=== PATIENT | female | born 1995 | race Caucasian/White ===

== ENCOUNTER 2018-03-08 09:50 | Emergency (ER) | payer SELFPAY ==
--- NOTE | 2018-03-08 11:35 | EDM.PDOC ---
ED HPI GENERAL MEDICAL PROBLEM - General Chief Complaint: Skin Complaint Stated Complaint: LEFT BREAST Time Seen by Provider: 03/08/18 10:32 Source of Information: Reports: Patient, Family History Limitations: Reports: No Limitations - History of Present Illness INITIAL COMMENTS - FREE TEXT/NARRATIVE: 22 y.o.w.f -smoker-out of state ([place]) gave to a boy 3 moth ago and had a miscarriage 1 month ago when she noticed swelling of her breast. US of her breast showed an abscess, which was drained and the pt was given Doxycycline. [place] in [place] for a job in the area, when the pt noticed a gain swelling and kumar coming from her breast. Pt denied physical trauma. BP 116/76 RR 18 Pulse ox 98% on RA Pulse 82 bpm Temp 36.8 Onset Date: 02/05/18 Onset Time: 07:00 Duration: Getting Worse Location: Reports: Chest (left breast) Quality: Reports: Ache, Dull, Pressure Severity: Mild Improves with: Reports: Rest Worsens with: Reports: Movement Context: Reports: Other Associated Symptoms: Reports: No Other Symptoms left breast Pain Score (Numeric/FACES): 6 - Related Data Allergies Allergy/AdvReac Type Severity Reaction Status Date / Time No Known Allergies Allergy Verified 03/08/18 10:31 Home Meds: Home Meds . [Unable to Verify Home Med List] 03/08/18 [History] Review of Systems - Review of Systems Review Of Systems: See Below Constitutional: Reports: No Symptoms Eyes: Reports: No Symptoms Ears: Reports: No Symptoms Nose: Reports: No Symptoms Mouth/Throat: Reports: No Symptoms Respiratory: Reports: No Symptoms Cardiovascular: Reports: No Symptoms GI/Abdominal: Reports: No Symptoms Genitourinary: Reports: No Symptoms Musculoskeletal: Reports: No Symptoms Skin: Reports: Other (swelling of left breast) Neurological: Reports: No Symptoms Psychiatric: Reports: No Symptoms ED EXAM, GENERAL - Physical Exam Exam: See Below Exam Limited By: No Limitations General Appearance: Alert, WD/WN, Mild Distress Eye Exam: Bilateral Eye: Normal Inspection Ears: Normal External Exam Ear Exam: Bilateral Ear: Auricle Normal Nose: Normal Inspection, Normal Mucosa, No Blood Throat/Mouth: Normal Inspection, Normal Lips, Normal Gums Head: Atraumatic, Normocephalic Neck: Normal Inspection, Supple, Non-Tender, Full Range of Motion Respiratory/Chest: No Respiratory Distress, Lungs Clear, Normal Breath Sounds, No Accessory Muscle Use, Chest Non-Tender Cardiovascular: Normal Peripheral Pulses, Regular Rate, Rhythm, No Edema, No Gallop, No JVD, No Murmur, No Rub GI/Abdominal: Normal Bowel Sounds, Soft, Non-Tender, No Organomegaly, No Distention, No Abnormal Bruit, No Mass, Pelvis Stable (Female) Exam: Deferred Rectal (Female) Exam: Deferred Back Exam: Normal Inspection, Full Range of Motion Extremities: Normal Inspection, Normal Range of Motion Neurological: Alert, Oriented, CN II-XII Intact, Normal Cognition, Normal Gait, Normal Reflexes, No Motor/Sensory Deficits Psychiatric: Normal Affect, Normal Mood Skin Exam: Warm, Dry, Intact, Normal Color, No Rash Lymphatic: No Adenopathy Course - Vital Signs Text/Narrative:: 22 y.o.w.f -smoker-out of state ([place]) gave to a boy 3 moth ago and had a miscarriage 1 month ago when she noticed swelling of her breast. US of her breast showed an abscess, which was drained and the pt was given Doxycycline. [place] job in the area, when the pt noticed a gain swelling and kumar coming from her breast. Pt denied physical trauma. BP 116/76 RR 18 Pulse ox 98% on RA Pulse 82 bpm Temp 36.8 PE: 22 y.o.w.f with left breast tenderness/swelling Imaging: No US available Impression: Left breast mastitis, vs cyst vs abscess 11.32 am Consultation: Dr. Monson, [facility], [facility]: Accepted the pt for US left breast and Tx Plan: transfer to [place] with PC Last Recorded V/S: Last Vital Signs Temp 36.5 C 03/08/18 11:50 Pulse 91 03/08/18 11:50 Resp 17 03/08/18 11:50 BP 127/73 03/08/18 11:50 Pulse Ox 98 03/08/18 11:50 Departure - Departure Time of Disposition: 11:35 Disposition: DC/Tfer to Acute Hospital 02 Condition: Good Clinical Impression: Swelling of breast - Discharge Information Referrals: PCP,None [Primary Care Provider] - Forms: ED Department Discharge Additional Instructions: Please f/u at [facility] ED in [place] today, Please come back if your symptoms get worse acutely
== END 2018-03-08 11:50 ==
LOC: FB.ED 09:50
DX: N63.20 Unspecified lump in the left breast, unspecified quadrant (principal); F17.210 Nicotine dependence, cigarettes, uncomplicated
CPT/HCPCS: 99283

== ENCOUNTER 2020-11-06 21:19 | Emergency (ER) | payer MEDICAID ==
--- NOTE | 2020-11-06 23:00 | EDM.PDOC ---
ED HPI GENERAL MEDICAL PROBLEM - General Chief Complaint: General Stated Complaint: HEMROIDS Time Seen by Provider: 11/06/20 22:30 Source of Information: Reports: Patient History Limitations: Reports: No Limitations - History of Present Illness INITIAL COMMENTS - FREE TEXT/NARRATIVE: c/o hemorrhoids pt with 2nd vag delivery 5w ago in [facility], no sutures had hemorrhoids with last 2 preg, stools firm with preg, now daily and soft had blood on TP and hand after wiping herself this evening no pain with hemorrhoids otherwise doing well - Related Data Allergies Allergy/AdvReac Type Severity Reaction Status Date / Time No Known Allergies Allergy Verified 03/08/18 10:31 Home Meds: Home Meds . [Unable to Verify Home Med List] 03/08/18 [History] Past Medical History [employer]PER[employer]OR [employer] History: Reports: , Spontaneous Social & Family History - Family History Family Medical History: No Pertinent Family History - Caffeine Use Caffeine Use: Reports: Coffee, Soda ED ROS GENERAL - Review of Systems Review Of Systems: See Below Constitutional: Reports: No Symptoms HEENT: Reports: No Symptoms Respiratory: Reports: No Symptoms Cardiovascular: Reports: No Symptoms Endocrine: Reports: No Symptoms GI/Abdominal: Reports: Hematochezia : Reports: No Symptoms Musculoskeletal: Reports: No Symptoms Skin: Reports: No Symptoms Neurological: Reports: No Symptoms Psychiatric: Reports: No Symptoms Hematologic/Lymphatic: Reports: No Symptoms Immunologic: Reports: No Symptoms ED EXAM, GENERAL - Physical Exam Exam: See Below Exam Limited By: No Limitations General Appearance: Alert, WD/WN, No Apparent Distress Respiratory/Chest: No Respiratory Distress Cardiovascular: Regular Rate, Rhythm Rectal (Female) Exam: Other (there are 3 small old 1 cm ext hemorrhoids, no blue, all soft, one at 10 o-clock has a small 3 mm clot, when wiped free there was a 1 mm underlying microperf in the skin that began oozing BRBC) Back Exam: Normal Inspection, Full Range of Motion. No: CVA Tenderness (R), CVA Tenderness (L) Extremities: Normal Inspection, Normal Range of Motion, Non-Tender, No Pedal Edema Neurological: Alert, Oriented, CN II-XII Intact, Normal Cognition, No Motor/Sensory Deficits Psychiatric: Normal Affect, Normal Mood Skin Exam: Warm, Dry, Intact, Normal Color, No Rash Lymphatic: No Adenopathy Course - Re-Assessments/Exams Free Text/Narrative Re-Assessment/Exam: 11/06/20 23:15 no internal hemorrhoids appreciated altho BRANDON not done there is no apparent clot in the ext hemorrhoid, yet one of the ext hemorrhoid has bleeding from a microperf, no evidence of infection, skin is soft without dryness or irritation natural pressure from cheeks compressing hemorrhoid should suffice, pt given a pad chafing and friction are the biggest barriers to healing and these were d/w pt with SAULO Pacheco in room SAULO Pacheco present during exam and post-exam discussion Departure - Departure Time of Disposition: 23:02 Disposition: Home, Self-Care 01 Condition: Good Clinical Impression: Bleeding external hemorrhoids - Discharge Information *PRESCRIPTION DRUG MONITORING PROGRAM REVIEWED*: Not Applicable *COPY OF PRESCRIPTION DRUG MONITORING REPORT IN PATIENT SCOOBY: Not Applicable Instructions: Hemorrhoids Referrals: Cecile Kauffman [employer]GER [employer] [Primary Care Provider] - Forms: ED Department Discharge Additional Instructions: There is a very small break in the skin of an external hemorrhoid that oozes blood due to pressure on the dilated vein. Avoid rubbing or chafing area. Use a thin layer of vasoline 2 times a day. Avoid using toilet paper to the extent possible. A soft moist cloth for cleaning after a bowel movement is preferred. May soak in the tub or shower for a few minutes as well. Use a pad inside under clothes to keep from getting blood on clothing. See your physician in 5 days if the bleeding has not resolved. Return to Emergency Department as needed.
== END 2020-11-06 23:30 | disposition home or self-care (01) ==
LOC: FB.ED 21:19
DX: O87.2 Hemorrhoids in the puerperium (principal)
CPT/HCPCS: 99282

== ENCOUNTER 2022-01-27 19:19 | Emergency (ER) | payer OTHER, MEDICAID ==
[2022-01-27] MEDS ORDERED: traMADol 50 MG Tab PO ONE (19:20)
[2022-01-27] MEDS ORDERED: Acetaminophen 500 MG Tab PO ONE (19:49)
[2022-01-27] MEDS ORDERED: traMADol 50 MG Tab PO STA (19:49)
[2022-01-27 20:00] LABS: ESTIMATED GFR 90 mL/min (>60)
[2022-01-27] MEDS ORDERED: Potassium Chloride 20 MEQ Tab.ER PO STA (20:39)
== END 2022-01-27 22:35 | disposition home or self-care (01) ==
LOC: FB.ED 19:19
DX: S82.002A Unspecified fracture of left patella, initial encounter for closed fracture (principal); S01.01XA Laceration without foreign body of scalp, initial encounter; M79.641 Pain in right hand; M79.644 Pain in right finger(s); M79.602 Pain in left arm; V43.53XA Car driver injured in collision with pick-up truck in traffic accident, initial encounter; Y92.410 Unspecified street and highway as the place of occurrence of the external cause
CPT/HCPCS: 12001; 29125; 36415; 73130; 73562; 80053; 85025; 85610; 85730; 99282; 99284; A9270

== ENCOUNTER 2024-03-14 18:50 | Emergency (ER) | payer MEDICAID ==
[2024-03-14 19:26] LABS: HEMATOCRIT 34.1 % (34.2-48.2); HEMOGLOBIN 11.8 g/dL (11.4-15.5); MEAN CORPUSCULAR HEMOGLOBIN 30.4 pg (23.9-33.9); MEAN CORPUSCULAR HGB CONC 34.6 g/dL (31.9-34.8); MEAN CORPUSCULAR VOLUME 87.8 fL (76.7-100.5); MEAN PLATELET VOLUME 7.9 fL (7.1-12.4); PLATELET COUNT,PLT 284 x10(3)uL (151-488); RED BLOOD CELL COUNT 3.88 x10(6)uL (3.60-5.20); RED CELL DISTRIBUTION WIDTH 13.8 % (12.3-16.5); WHITE BLOOD CELL COUNT,WBC 24.1 x10-3/uL (3.0-10.3)
[2024-03-14 19:37] LABS: BAND PERCENT MAN 1 % (0-6); EOSINOPHILS PERCENT MAN 1 % (0-5); LYMPHOCYTES PERCENT MAN 21 % (13-37); MONOCYTES PERCENT MAN 7 % (4-12); SEG NEUTROPHILS PERCENT MAN 70 % (46-82)
[2024-03-14 19:49] LABS: BLOOD UREA NITROGEN,BUN 13 mg/dL (7-18); BUN/CREATININE RATIO 32.5 (9-20); CALCIUM 8.8 mg/dL (8.6-10.2); CARBON DIOXIDE,CO2 25 mmol/L (21-32); CHLORIDE,CL 101 mmol/L (100-110); CREATININE 0.4 mg/dL (0.55-1.02); EST CRCL DRUG DOSING (CG) 211.23 mL/min; ESTIMATED GFR 138 mL/min (>60); GLUCOSE RANDOM 106 mg/dL (80-116); POTASSIUM,K 3.2 mmol/L (3.5-5.3); SODIUM,NA 135 mmol/L (135-145)
[2024-03-14 19:55] LABS: A/G RATIO 0.7; ALANINE AMINOTRANSFERASE,ALT 17 U/L (12-36); ALBUMIN 2.7 g/dL (3.5-5.2); ALKALINE PHOSPHATASE 68 IU/L (56-112); ASPARTATE AMNIOTRANSFERASE,AST 11 IU/L (5-25); BILIRUBIN TOTAL 0.1 mg/dL (0.1-1.3); PROTEIN TOTAL,TP 6.8 g/dL (6.0-8.0)
[2024-03-14 20:03] LABS: BILIRUBIN,URINE NEGATIVE (NEGATIVE); GLUCOSE,URINE NORMAL (NORMAL); KETONES,URINE NEGATIVE (NEGATIVE); LEUKOCYTE ESTERASE,URINE NEGATIVE (NEGATIVE); NITRITE,URINE NEGATIVE (NEGATIVE); OCCULT BLOOD,URINE NEGATIVE (NEGATIVE); PROTEIN,URINE NEGATIVE (NEGATIVE); UROBILINOGEN,URINE NORMAL (NEGATIVE)
[2024-03-14 20:04] LABS: APPEARANCE,URINE CLEAR (CLEAR); BACTERIA,URINE FEW (NS); COLOR,URINE YELLOW (YELLOW); RBC,URINE 0-5 (0-5); SQUAMOUS EPITHELIAL CELLS,UR FEW (NS,R,O); WBC,URINE 0-5 (0-5)
== END 2024-03-14 20:37 | disposition home or self-care (01) ==
LOC: FB.ED 18:50
DX: O99.112 Other diseases of the blood and blood-forming organs and certain disorders involving the immune mechanism complicating pregnancy, second trimester (principal); D72.829 Elevated white blood cell count, unspecified; E66.9 Obesity, unspecified; F17.210 Nicotine dependence, cigarettes, uncomplicated; Z86.16 Personal history of COVID-19; Z3A.20 20 weeks gestation of pregnancy; Z68.38 Body mass index [BMI] 38.0-38.9, adult
CPT/HCPCS: 36415; 80053; 81001; 85025; 99284

== ENCOUNTER 2024-11-28 20:04 | Emergency (ER) | payer MEDICAID | END 2024-11-28 21:24 | disposition left against medical advice (07) | LOC: FB.ED 20:04 | DX: Z53.21 Procedure and treatment not carried out due to patient leaving prior to being seen by health care provider (principal) ==

== ENCOUNTER 2024-12-07 09:42 | Emergency (ER) | payer MEDICAID | END 2024-12-07 10:40 | disposition home or self-care (01) | LOC: FB.ED 09:42 | DX: H00.15 Chalazion left lower eyelid (principal); E66.9 Obesity, unspecified; Z86.16 Personal history of COVID-19; F17.200 Nicotine dependence, unspecified, uncomplicated | CPT/HCPCS: 99283 ==